=== PATIENT | female | born 1985 | race Asian ===

== ENCOUNTER 2022-08-28 08:50 | Emergency (ER) | payer OTHER ==
[~2022-08-28] VITALS: Ht 175.3 cm; Wt 100.2 kg
[2022-08-28 09:35] VITALS: BP 155/102; TEMP 99
== END 2022-08-28 09:35 | disposition home or self-care (01) ==
LOC: ED 08:50
DX: K08.89 Other specified disorders of teeth and supporting structures (principal); K02.9 Dental caries, unspecified; X58.XXXA Exposure to other specified factors, initial encounter; Y92.89 Other specified places as the place of occurrence of the external cause
CPT/HCPCS: 99282

== ENCOUNTER 2022-11-01 14:52 | Emergency (ER) | payer OTHER ==
[~2022-11-01] VITALS: Ht 175.3 cm; Wt 102.1 kg
[2022-11-01 15:11] VITALS: BP 170/106; TEMP 97.8
== END 2022-11-01 15:42 | disposition home or self-care (01) ==
LOC: ED 14:52
DX: K02.9 Dental caries, unspecified (principal)
CPT/HCPCS: 99281